=== PATIENT | female | born 1975 | race Caucasian/White ===

== ENCOUNTER 2021-07-01 19:36 | Emergency (ER) | payer OTHER ==
[~2021-07-01] VITALS: Ht 149.9 cm; Wt 89.8 kg
[~2021-07-01 19:36] MED LIST: CIPRO100 MG; TESSALON200 MG
[2021-07-01] MEDS ORDERED: METFORMIN HCL500 M4 PO (20:24)
[2021-07-01] MEDS ORDERED: ATORVASTATIN CA10 MG PO (20:24)
[2021-07-01] MEDS ORDERED: LEVOTHYROXINE50 MCG PO (20:24)
[2021-07-01] MEDS ORDERED: LISINOPRIL20 MG PO (20:24)
== END 2021-07-02 03:55 ==
LOC: ER 19:36
DX: I10 Essential (primary) hypertension (principal); E11.9 Type 2 diabetes mellitus without complications; Z79.84 Long term (current) use of oral hypoglycemic drugs; Z88.0 Allergy status to penicillin

== ENCOUNTER 2021-12-28 06:24 | Emergency (ER) | payer OTHER ==
[~2021-12-28] VITALS: Ht 149.9 cm; Wt 88.5 kg
[~2021-12-28 06:24] MED LIST changes: +ATORVASTATIN CA10 MG PO; +LEVOTHYROXINE50 MCG PO; +LISINOPRIL20 MG PO; +METFORMIN HCL500 M4 PO
[2021-12-28] MEDS ORDERED: SYNTHROID50 MCG PO (06:47)
== END 2021-12-28 11:41 | disposition home or self-care (01) ==
LOC: ER 06:24
DX: R10.32 Left lower quadrant pain (principal); N20.1 Calculus of ureter; Z88.0 Allergy status to penicillin